=== PATIENT | male | born 1955 | race Caucasian/White ===

== ENCOUNTER 2022-11-10 11:20 | Inpatient (IN) ==
--- NOTE | 2022-11-10 12:13 | XRay Report ---
XR chest 2V PA/lateral CLINICAL HISTORY: Dyspnea, cough COMPARISON STUDY: No previous studies for comparison. FINDINGS: Lung volumes are normal. There is no pneumothorax or pleural effusion. There is no evidence for pulmonary edema. Patchy asymmetric left lung airspace opacities are present. There is mild retic ulonodular interstitial thickening within the lungs. Cardiac size is at upper limits of normal. IMPRESSION: Multifocal left lung airspace opacities suggestive of pneumonia. Post treatment radiogra phs to ensure resolution are recommended. ACT 112: Negative or not required by law. Electronically signed by: Benji Schilling M.D. 11/10/2022 12:12 PM
[2022-11-10 12:32] LABS: Base Excess VBG -0.3 mEq/L; HCO3 VBG 27 mmol/L; Oxygen Saturation VBG < 60.0 %; PCO2 VBG 55 mmHg (38-50); PO2 VBG 28 mmHg
[2022-11-10 12:43] LABS: INR 1.1 (0.9-1.1); Partial Thromboplastin Time 28.5 Seconds (21.0-31.0); Prothrombin Time 11.3 Seconds (9.0-12.0)
[2022-11-10 12:50] LABS: Albumin Globulin Ratio 1.3 (0.9-2); Albumin Level 4.9 gm/dl (3.4-5.0); BUN Creatinine Ratio 15.4 (10-20); Bilirubin,Total 1.3 mg/dl (0.2-1.0); Calcium 9.7 mg/dl (8.5-10.1); Creatinine Clr Calc Pharmacy 83.5 ml/min; Est GFR (African American) 87.5 ml/min; Est GFR (Non-African American) 75.5 ml/min; Globulin 3.8 gm/dl (2.5-4.0); Magnesium 2.2 mg/dl (1.7-2.4); Potassium 4.1 mmol/L (3.5-5.1); Total Protein 8.7 gm/dl (6.0-8.3)
[2022-11-10 12:55] LABS: Troponin I High Sensitivity 5.6 pg/ml (0-20)
[2022-11-10 13:23] LABS: Hematocrit (blood only) 53.5 % (40.1-51.0); Hemoglobin 18.6 g/dl (14.0-18.0); Mean Corpuscular Hemoglobin 30.8 pg (25.0-34.0); Mean Corpuscular Hgb Conc 34.8 g/dL (32.0-36.0); Mean Corpuscular Volume 88.6 fL (80.0-100.0); Mean Platelet Volume 9.8 fL (9.4-12.4); Platelet Count 193 K/uL (130-400); RDW Coefficient of Variation 12.5 % (11.5-14.5); RDW Standard Deviation 40.9 fL (36.4-46.3); Red Blood Count 6.04 M/uL (4.63-6.08); White Blood Count 8.84 K/ul (4.8-10.8)
[2022-11-10 13:24] LABS: Basophils # (auto) 0.04 K/uL (0-0.2); Basophils % (auto) 0.5 %; Eosinophils # (auto) 0.04 K/uL (0-0.50); Eosinophils % (auto) 0.5 %; Immature Granulocytes # (auto) 0.02 K/uL (0.00-0.02); Immature Granulocytes % (auto) 0.2 %; Lymphocytes # (auto) 0.72 K/uL (1.2-3.4); Lymphocytes % (auto) 8.1 %; Monocytes # (auto) 0.28 K/uL (0.24-0.82); Monocytes % (auto) 3.2 %; Neutrophils # (auto) 7.74 K/uL (1.4-6.5); Neutrophils % (auto) 87.5 %; Platelet Estimate Normal (Normal)
[2022-11-10 13:32] LABS: Influenza A virus by PCR Negative (Neg); Influenza B virus by PCR Negative (Neg); RSV by PCR Negative (Neg); SARS CoV2 RNA(COVID-19) Ceph NEGATIVE (Negative)
[2022-11-10] MEDS ORDERED: ALBUT/IPRATROP 3MG/0.5MG NEB 3 ML VIAL NEB STA (15:02)
[2022-11-10] MEDS ORDERED: AMPICILLIN/SULBACTAM SOD 3,000 MG in 0.9 % SODIUM CHLORIDE 100 ML IV STA (15:07)
--- NOTE | 2022-11-10 15:08 | Emergency Department Note ---
Impression & Plan Aspiration pneumonia ADMIT ED Provider Note HPI: The patient is a 66-year-old male who presents to the emergency department for evaluation for possible pneumonia. Patient had a colonoscopy done today and he tells me he began vomiting during the procedure. This was done at [facility]. Patient states that he had some issues with his breathing when he awoke, he was given a breathing treatment and advised to come to the emergency department to be assessed for possible aspiration pneumonia. On arrival here to the ED the patient had oxygen saturation at 90%, he was otherwise in no acute distress, states he has some mild shortness of breath but otherwise feels well following his procedure. ROS: - Per HPI *Outpatient medications and allergy history reviewed. *Pertinent external medical records reviewed. 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 On arrival here to the ED he has borderline oxygen saturations, on my assessment he was placed on continuous pulse ox, unfortunately he was unable to maintain oxygen saturations greater than 90% on room air and therefore was placed on supplemental oxygen with good improvement. Chest x-ray shows evidence of a multifocal pneumonia pattern, he does have some crackles at the bilateral bases, I am concerned that this may have been related to his aspiration event today given history. Blood cultures were ordered, patient was ordered a dose of IV Unasyn. EKG does not show any acute ischemic changes, troponin is negative, I have low suspicion for ACS or PE given history in addition to lack of any chest pain. His venous blood gas does initially show some evidence of acidosis with hypercarbia with a PCO2 of 55, he was given an additional DuoNeb breathing treatment, repeat venous blood gas does show improvement. Case was discussed with the [facility] hospitalist service and the patient was placed for admission in stable condition for further care Disposition discussion held by myself with: Patient and significant other Critical care time: 45-minutes -Stabilization of hypoxia with oxygen saturations less than 90% on room air requiring supplemental oxygen for correction, time spent at the bedside, discussion with other providers and arrangement of admission Diagnosis: 1. Acute hypoxic respiratory failure 2. Aspiration/multifocal pneumonia Disposition: Admission Miguel A Lee DO Emergency Medicine Past Med/Surg History Surgical History (Updated 11/10/22 @ 16:40 by Diana Greer PA-C) Hx of appendectomy S/P colonoscopy Social History Smoking Status: Never smoker Tobacco Type: Smokeless Tobacco (Dip or Chew) Hx Alcohol Use: Yes Alcohol type: beer Alcohol Intake Frequency Comment: 1-2 daily Preferred Language: Afghan Feels Safe at Home: Yes Allergies Allergies Allergy/AdvReac Type Severity Reaction Status Date / Time oxycodone [From Percocet] Allergy Severe HALLUCINATI Verified 11/10/22 15:42 ONS/CONFUSI ON Home Meds Home Medications Medication Instructions Recorded Confirmed naproxen sodium 220 mg tablet 440 mg PO DIRECTED PRN Pain 11/10/22 11/10/22 (Aleve) Results & Data (ED) Vital Signs Vital Signs - 24 hr 11/10/22 11:29 11/10/22 15:34 11/10/22 15:34 Temperature 36.8 C Temperature Source Temporal Artery Scan Pulse Rate 72 103 H Pulse Rate [Finger] 94 H Pulse Rate from SpO2 Sensor Respiratory Rate 16 22 22 Respiratory Effort / Characteristics Non-Labored Spontaneous Spontaneous Respiratory Depth Normal Normal Respiratory Pattern Regular Blood Pressure 154/92 H Blood Pressure [Right Arm] 134/74 Blood Pressure Mean 112 Blood Pressure Mean [Right Arm] 94 Blood Pressure Position Sitting Pulse Oximetry 90 93 94 Oxygen Delivery Method Room Air Nasal Cannula Nasal Cannula Oxygen Flow Rate 2 2 Sepsis Recent Fever Within 48 Hours No Sepsis New/Unexplained Change in Mental Status No Sepsis Action Taken by Nursing No Action Required 11/10/22 16:27 11/10/22 16:00 11/10/22 16:20 Temperature Temperature Source Pulse Rate 104 H 101 H Pulse Rate [Finger] 109 H Pulse Rate from SpO2 Sensor 102 H Respiratory Rate 22 26 H 28 H Respiratory Effort / Characteristics Respiratory Depth Respiratory Pattern Blood Pressure 128/84 Blood Pressure [Right Arm] 128/84 Blood Pressure Mean 98 Blood Pressure Mean [Right Arm] 98 Blood Pressure Position Pulse Oximetry 88 L 92 93 Oxygen Delivery Method Oxygen Flow Rate Sepsis Recent Fever Within 48 Hours Sepsis New/Unexplained Change in Mental Status Sepsis Action Taken by Nursing 11/10/22 16:30 11/10/22 16:40 11/10/22 16:50 Temperature Temperature Source Pulse Rate 98 H 99 H 96 H Pulse Rate [Finger] Pulse Rate from SpO2 Sensor 98 H 97 H 97 H Respiratory Rate 27 H 27 H 22 Respiratory Effort / Characteristics Respiratory Depth Respiratory Pattern Blood Pressure Blood Pressure [Right Arm] Blood Pressure Mean Blood Pressure Mean [Right Arm] Blood Pressure Position Pulse Oximetry 92 93 94 Oxygen Delivery Method Oxygen Flow Rate Sepsis Recent Fever Within 48 Hours Sepsis New/Unexplained Change in Mental Status Sepsis Action Taken by Nursing 11/10/22 17:00 11/10/22 17:00 11/10/22 17:10 Temperature Temperature Source Pulse Rate 92 H 95 H Pulse Rate [Finger] Pulse Rate from SpO2 Sensor 88 94 H Respiratory Rate 23 24 Respiratory Effort / Characteristics Respiratory Depth Respiratory Pattern Blood Pressure 128/77 Blood Pressure [Right Arm] Blood Pressure Mean 94 Blood Pressure Mean [Right Arm] Blood Pressure Position Pulse Oximetry 95 94 Oxygen Delivery Method Oxygen Flow Rate Sepsis Recent Fever Within 48 Hours Sepsis New/Unexplained Change in Mental Status Sepsis Action Taken by Nursing Laboratory Data 11/10/22 12:10 11/10/22 12:10 Lab Results 11/10/22 11/10/22 11/10/22 Range/Units 12:10 12:10 12:10 WBC 8.84 (4.8-10.8) K/ul RBC 6.04 (4.63-6.08) M/uL Hgb 18.6 H (14.0-18.0) g/dl Hct 53.5 H (40.1-51.0) % MCV 88.6 (80.0-100.0) fL MCH 30.8 (25.0-34.0) pg MCHC 34.8 (32.0-36.0) g/dL RDW Std Deviation 40.9 (36.4-46.3) fL RDW Coeff of Dionte 12.5 (11.5-14.5) % Plt Count 193 (130-400) K/uL MPV 9.8 (9.4-12.4) fL Immature Gran % (Auto) 0.2 % Neut % (Auto) 87.5 % Lymph % (Auto) 8.1 % Cherry % (Auto) 3.2 % Eos % (Auto) 0.5 % Baso % (Auto) 0.5 % Neut # (Auto) 7.74 H (1.4-6.5) K/uL Lymph # (Auto) 0.72 L (1.2-3.4) K/uL Cherry # (Auto) 0.28 (0.24-0.82) K/uL Eos # (Auto) 0.04 (0-0.50) K/uL Baso # (Auto) 0.04 (0-0.2) K/uL Immature Gran # (Auto) 0.02 (0.00-0.02) K/uL Platelet Estimate Normal (Normal) PT 11.3 (9.0-12.0) Seconds INR 1.1 (0.9-1.1) APTT 28.5 (21.0-31.0) Seconds PTT Ratio 1.0 VBG pH (7.36-7.41) VBG pCO2 (38-50) mmHg VBG pO2 mmHg VBG HCO3 mmol/L VBG O2 Saturation % VBG Base Excess mEq/L Sodium 136 (136-145) mmol/L Potassium 4.1 (3.5-5.1) mmol/L Chloride 100 (98-107) mmol/L Carbon Dioxide 28 (21-32) mmol/L Anion Gap 8 (3-11) BUN 16 (6-23) mg/dl Creatinine 1.04 (0.6-1.4) mg/dl Est Cr Clr Drug Dosing 83.5 ml/min Est GFR ( Amer) 87.5 ml/min Est GFR (Non-Af Amer) 75.5 ml/min BUN/Creatinine Ratio 15.4 (10-20) Glucose 122 H (70-99(Fasting)) mg/dl Calcium 9.7 (8.5-10.1) mg/dl Magnesium 2.2 (1.7-2.4) mg/dl Total Bilirubin 1.3 H (0.2-1.0) mg/dl AST 30 (13-39) U/L ALT 44 (7-52) U/L Alkaline Phosphatase 82 (34-104) U/L Troponin I High Sens 5.6 (0-20) pg/ml Total Protein 8.7 H (6.0-8.3) gm/dl Albumin 4.9 (3.4-5.0) gm/dl Globulin 3.8 (2.5-4.0) gm/dl Albumin/Globulin Ratio 1.3 (0.9-2) Urine Color Urine Appearance (Clear) Urine pH (4.5-7.5) Ur Specific [place] (1.000-1.030) Urine Protein (Negative) Urine Glucose (UA) (Negative) Urine Ketones (Negative) Urine Blood (Negative) Urine Nitrite (Negative) Urine Bilirubin (Negative) Urine Urobilinogen (Negative) Ur Leukocyte Esterase (Negative) Urine WBC (Auto) (0-5) /hpf Urine RBC (Auto) (0-4) /hpf U Hyaline Cast (Auto) (0-5) /lpf U Epithel Cells (Auto) (0-5) /lpf Urine Bacteria (Auto) (Negative) SARS-CoV-2 (PCR) (Negative) Influenza Type A (PCR) (Neg) Influenza Type B (PCR) (Neg) RSV (RT-PCR) (Neg) 11/10/22 11/10/22 11/10/22 Range/Units 12:10 12:10 15:19 WBC (4.8-10.8) K/ul RBC (4.63-6.08) M/uL Hgb (14.0-18.0) g/dl Hct (40.1-51.0) % MCV (80.0-100.0) fL MCH (25.0-34.0) pg MCHC (32.0-36.0) g/dL RDW Std Deviation (36.4-46.3) fL RDW Coeff of Dionte (11.5-14.5) % Plt Count (130-400) K/uL MPV (9.4-12.4) fL Immature Gran % (Auto) % Neut % (Auto) % Lymph % (Auto) % Cherry % (Auto) % Eos % (Auto) % Baso % (Auto) % Neut # (Auto) (1.4-6.5) K/uL Lymph # (Auto) (1.2-3.4) K/uL Cherry # (Auto) (0.24-0.82) K/uL Eos # (Auto) (0-0.50) K/uL Baso # (Auto) (0-0.2) K/uL Immature Gran # (Auto) (0.00-0.02) K/uL Platelet Estimate (Normal) PT (9.0-12.0) Seconds INR (0.9-1.1) APTT (21.0-31.0) Seconds PTT Ratio VBG pH 7.30 L 7.45 H (7.36-7.41) VBG pCO2 55 H 33 L (38-50) mmHg VBG pO2 28 58 mmHg VBG HCO3 27 23 mmol/L VBG O2 Saturation < 60.0 91.0 % VBG Base Excess -0.3 -0.4 mEq/L Sodium (136-145) mmol/L Potassium (3.5-5.1) mmol/L Chloride (98-107) mmol/L Carbon Dioxide (21-32) mmol/L Anion Gap (3-11) BUN (6-23) mg/dl Creatinine (0.6-1.4) mg/dl Est Cr Clr Drug Dosing ml/min Est GFR ( Amer) ml/min Est GFR (Non-Af Amer) ml/min BUN/Creatinine Ratio (10-20) Glucose (70-99(Fasting)) mg/dl Calcium (8.5-10.1) mg/dl Magnesium (1.7-2.4) mg/dl Total Bilirubin (0.2-1.0) mg/dl AST (13-39) U/L ALT (7-52) U/L Alkaline Phosphatase (34-104) U/L Troponin I High Sens (0-20) pg/ml Total Protein (6.0-8.3) gm/dl Albumin (3.4-5.0) gm/dl Globulin (2.5-4.0) gm/dl Albumin/Globulin Ratio (0.9-2) Urine Color Urine Appearance (Clear) Urine pH (4.5-7.5) Ur Specific [place] (1.000-1.030) Urine Protein (Negative) Urine Glucose (UA) (Negative) Urine Ketones (Negative) Urine Blood (Negative) Urine Nitrite (Negative) Urine Bilirubin (Negative) Urine Urobilinogen (Negative) Ur Leukocyte Esterase (Negative) Urine WBC (Auto) (0-5) /hpf Urine RBC (Auto) (0-4) /hpf U Hyaline Cast (Auto) (0-5) /lpf U Epithel Cells (Auto) (0-5) /lpf Urine Bacteria (Auto) (Negative) SARS-CoV-2 (PCR) NEGATIVE (Negative) Influenza Type A (PCR) Negative (Neg) Influenza Type B (PCR) Negative (Neg) RSV (RT-PCR) Negative (Neg) 11/10/22 Range/Units 16:14 WBC (4.8-10.8) K/ul RBC (4.63-6.08) M/uL Hgb (14.0-18.0) g/dl Hct (40.1-51.0) % MCV (80.0-100.0) fL MCH (25.0-34.0) pg MCHC (32.0-36.0) g/dL RDW Std Deviation (36.4-46.3) fL RDW Coeff of Dionte (11.5-14.5) % Plt Count (130-400) K/uL MPV (9.4-12.4) fL Immature Gran % (Auto) % Neut % (Auto) % Lymph % (Auto) % Cherry % (Auto) % Eos % (Auto) % Baso % (Auto) % Neut # (Auto) (1.4-6.5) K/uL Lymph # (Auto) (1.2-3.4) K/uL Cherry # (Auto) (0.24-0.82) K/uL Eos # (Auto) (0-0.50) K/uL Baso # (Auto) (0-0.2) K/uL Immature Gran # (Auto) (0.00-0.02) K/uL Platelet Estimate (Normal) PT (9.0-12.0) Seconds INR (0.9-1.1) APTT (21.0-31.0) Seconds PTT Ratio VBG pH (7.36-7.41) VBG pCO2 (38-50) mmHg VBG pO2 mmHg VBG HCO3 mmol/L VBG O2 Saturation % VBG Base Excess mEq/L Sodium (136-145) mmol/L Potassium (3.5-5.1) mmol/L Chloride (98-107) mmol/L Carbon Dioxide (21-32) mmol/L Anion Gap (3-11) BUN (6-23) mg/dl Creatinine (0.6-1.4) mg/dl Est Cr Clr Drug Dosing ml/min Est GFR ( Amer) ml/min Est GFR (Non-Af Amer) ml/min BUN/Creatinine Ratio (10-20) Glucose (70-99(Fasting)) mg/dl Calcium (8.5-10.1) mg/dl Magnesium (1.7-2.4) mg/dl Total Bilirubin (0.2-1.0) mg/dl AST (13-39) U/L ALT (7-52) U/L Alkaline Phosphatase (34-104) U/L Troponin I High Sens (0-20) pg/ml Total Protein (6.0-8.3) gm/dl Albumin (3.4-5.0) gm/dl Globulin (2.5-4.0) gm/dl Albumin/Globulin Ratio (0.9-2) Urine Color Dark Yellow Urine Appearance Clear (Clear) Urine pH 5.0 (4.5-7.5) Ur Specific [place] 1.023 (1.000-1.030) Urine Protein Trace H (Negative) Urine Glucose (UA) Negative (Negative) Urine Ketones Trace H (Negative) Urine Blood Trace H (Negative) Urine Nitrite Negative (Negative) Urine Bilirubin Negative (Negative) Urine Urobilinogen Negative (Negative) Ur Leukocyte Esterase Negative (Negative) Urine WBC (Auto) 1-5 (0-5) /hpf Urine RBC (Auto) 0-4 (0-4) /hpf U Hyaline Cast (Auto) 5-10 H (0-5) /lpf U Epithel Cells (Auto) 5-10 H (0-5) /lpf Urine Bacteria (Auto) Negative (Negative) SARS-CoV-2 (PCR) (Negative) Influenza Type A (PCR) (Neg) Influenza Type B (PCR) (Neg) RSV (RT-PCR) (Neg) Administered Medications Discontinued Medications Al Hydrox/Mg Hydrox/Simethicone (Gi Cocktail Ed Use) 1 dose PO ONE ONE Stop: 11/10/22 16:45 Last Admin: 11/10/22 16:50 Dose: 1 dose Documented By: RASHARD Albuterol (Albut/Ipratrop 3mg/0.5mg Neb 3 Ml Vial) 3 ml NEB NOW STA; Protocol Stop: 11/10/22 15:03 Last Admin: 11/10/22 15:11 Dose: 3 ml Documented By: UDAY Ampicillin Sodium/Sulbactam Sodium 3,000 mg/ Sodium Chloride 108 mls @ 200 mls/hr IV NOW STA; Protocol Stop: 11/10/22 15:39 Last Infusion: 11/10/22 15:57 Dose: 0 mls/hr Documented By: Admin: 11/10/22 15:22 Dose: 200 mls/hr Documented By: RASHARD Imaging Data Radiologist's Impression: Chest X-Ray 11/10/22 11:32 XR chest 2V PA/lateral CLINICAL HISTORY: Dyspnea, cough COMPARISON STUDY: No previous studies for comparison. FINDINGS: Lung volumes are normal. There is no pneumothorax or pleural effusion. There is no evidence for pulmonary edema. Patchy asymmetric left lung airspace opacities are present. There is mild reticulonodular interstitial thickening within the lungs. Cardiac size is at upper limits of normal. IMPRESSION: Multifocal left lung airspace opacities suggestive of pneumonia. Post treatment radiographs to ensure resolution are recommended. ACT 112: Negative or not required by law. Electronically signed by: Benji Schilling M.D. 11/10/2022 12:12 PM Discharge Plan Visit Data Chief Complaint: Referred by Doctor Stated Complaint: REF BY DOC ED Provider: Miguel A Lee Discharge Problem: Aspiration pneumonia Forms Stand Alone Forms: [facility] [place] Prescriptions Prescriptions: No Action naproxen sodium [Aleve] 220 mg Tablet 440 mg PO DIRECTED PRN (Reason: Pain) Referrals Referrals: PCP,NO [Physician] - : Aspiration pneumonia Qualifiers: Aspiration pneumonia type: due to vomit Laterality: unspecified laterality Lung location: unspecified part of lung Qualified Code(s): J69.0 - Pneumonitis due to inhalation of food and vomit
[2022-11-10 15:46] LABS: Base Excess VBG -0.4 mEq/L; HCO3 VBG 23 mmol/L; PCO2 VBG 33 mmHg (38-50); PO2 VBG 58 mmHg; pH VBG 7.45 (7.36-7.41)
[2022-11-10 16:41] LABS: Appearance Urine Clear (Clear); Bacteria Urine Automated Negative (Negative); Bilirubin Urine Negative (Negative); Blood Urine Trace (Negative); Color Urine Dark Yellow; Glucose Urine UA Negative (Negative); Ketones Urine Trace (Negative); Leukocyte Esterase Urine Negative (Negative); Nitrite Urine Negative (Negative); Protein Urine Trace (Negative); RBC Urine Automated 0-4 /hpf (0-4); Specific Gravity Urine 1.023 (1.000-1.030); Urobilinogen Urine Negative (Negative)
[2022-11-10] MEDS ORDERED: GI COCKTAIL ED USE PO ONE (16:44)
--- NOTE | 2022-11-10 16:55 | History & Physical Report ---
Date of Service November 10, 2022 Assessment & Plan (1) Aspiration pneumonia: (2) S/P colonoscopy: (3) Hypoxia: Plan: - Admit to med surg with tele - Episode of vomiting occurred during colonoscopy as outpatient today at [facility]. Pt developed hypoxia with sats at 88-90% on RA. Prior to the procedure he did not have any respiratory symptoms. Concerns for aspiration pneumonia and was sent to the ER, arrived by private vehicle. Here o2 sats remained lower th an 90% so was placed on 2L via NC and has sats of 94% currently. - Continue on unasyn IV , started in the ER - Continue supportive care with incentive spirometry, flutter, duoneb prn and O2 to be weaned as tolerated - Checking procalcitonin, follow blood cultures x 2 - WBC is currently 8.84, afebrile, tachycardic with pulse at 109, hypoxia as above - Hgb of 18.6 likely hemoconcentrated s/p colonoscopy and bowel prep - will give NSS x 2 L - CXR reviewed personally by myself personally by myself showing multiple opacities more so in the left lung suggesting pneumonia - EKG reviewed by myself showing NSR, normal QTC - Antiemetics on board prn, allow diet and advance as tolerated, no need for speech therapy in this instance since occurred while sedated (4) Adult BMI 30.0-30.9 kg/sq m: Plan: - Pt with muscle bulk, not obese. Diet and exercise encouraged at bedside. 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 - Admits to drinking 1-2 beers daily (5) Past history of chewing tobacco use: Plan: - Hx of chewing snuff occasionally, pt reports does not need a nicotine patch. Complete cessation was encouraged at bedside. DVT ppx: -teds, scds, ambulatory CODE: Full code Dispo: From home, likely to remain in the hospital x 1 to 2 days. History of Present Illness Chief Complaint: Aspiration during colonoscopy as outpatient, shortness of breath Primary Care Provider: Tash Lei MD This is a 66 yo M without significant past medical history who presents after having a routine colonoscopy as an outpatient at [facility] earlier today. Prior to his procedure everything was in normal state, he denies any prodrome or respiratory complaints prior to colonoscopy. During procedure patient aspirated, and afterwards felt his breathing was worsened. He was noted to be hypoxic with O2 sats in the high 80s on room air. He came with his to the hospital via private vehicle and here was found to be hypoxic with sats at 88% which improved to 90% after being placed on 2 L NC. Patient feels something rattle in his chest whenever he breathes deeply, admits to occasional cough with white sputum. Denies any fevers, sweats or chills. He has history of chewing tobacco occasionally but does not feel that he needs a nicotine patch. Patient drinks 1-2 beers daily with dinner. Pts , Nelli is present with him at bedside and supports the history. All their questions and concerns were addressed. Allergies Allergy/AdvReac Type Severity Reaction Status Date / Time oxycodone [From Percocet] Allergy Severe HALLUCINATI Verified 11/10/22 15:42 ONS/CONFUSI ON Home Medications Medication Instructions Recorded Confirmed Type naproxen sodium 220 mg tablet 440 mg PO DIRECTED PRN Pain 11/10/22 11/10/22 History (Aleve) Past Med/Surg History Medical History History of alcohol use Past history of chewing tobacco use Surgical History (Updated 11/10/22 @ 16:40 by Diana Greer PA-C) Hx of appendectomy S/P colonoscopy Family History (Updated 11/10/22 @ 17:32 by Diana Greer PA-C) Father Cancer brain Social History (Updated 11/10/22 @ 17:29 by Diana Greer PA-C) Smoking Status: Never smoker Tobacco Type: Smokeless Tobacco (Dip or Chew) Hx Alcohol Use: Yes Alcohol type: beer Alcohol Intake Frequency Comment: 1-2 daily Hx Substance Use: No Preferred Language: German Communication Ability: Effective Director Medical Economics Required: No Beliefs That Will Affect Care: None Current Living Situation: Spouse Current Living Situation Comment: and granddaughter Other Information That Helps Us Care for You: No Feels Safe at Home: Yes Safety Concerns: Feels Safe At This Time Assistive Devices: Contacts Review of Systems Review of Systems: Constitutional: No fever, sweats or chills Eyes: No diplopia, no worsening or blurred vision ENT: normal hearing, no trouble swallowing Respiratory: + As per HPI, +cough, +white sputum, no dyspnea at rest, + some dyspnea on exertion Cardiovascular: No chest pain, tightness or palpitations Abdomen: No pain, nausea, vomiting, diarrhea or constipation Musculoskeletal: No joint pain, calf pain, swelling Neurologic: No weakness, numbness/tingling, or balance problems Psychiatric: No anxiety or depression Skin: No rash or itch Physical Exam Physical Exam: General: awake, alert, no apparent distress Head: Normocephalic, atraumatic ENT: PERRL, EOMI, no pharyngeal exudate, mucous membranes moist Chest: On 2 L via NC with sats at 94% at bedside, + crackles in the left lower lobe with diminished breath sounds at the left base. Faint crackles on the right side. No wheeze or rales. Cardiac: Regular rate and rhythm, no murmur, no JVD, normal peripheral pulses, good capillary refill Abdominal: NABS x 4 quadrants, soft, nondistended, nontender to palpation, no rebound or guarding Extremities: Normal inspection, no peripheral edema or erythema, calfs nontender to palpation Psych: Normal mood and affect Neuro: AAO x 3, strength intact bilaterally and rated 5/5, no motor deficits, speech is clear, no peripheral sensory deficits Results & Data Results & Data ([facility]) Vital Signs (Past 12 Hours) Vital Signs Temp Pulse Pulse Resp BP BP Pulse Ox 11/10/22 16:27 109 H 22 128/84 88 L 11/10/22 15:34 103 H 22 94 11/10/22 15:34 94 H 22 134/74 93 11/10/22 11:29 36.8 C 72 16 154/92 H 90 O2 Del Method O2 Flow Rate 11/10/22 16:27 11/10/22 15:34 Nasal Cannula 2 11/10/22 15:34 Nasal Cannula 2 11/10/22 11:29 Room Air Laboratory Results 11/10/22 17:10 Aerobic Blood Culture - Pending Blood Anaerobic Blood Culture - Pending 11/10/22 15:19 Aerobic Blood Culture - Pending Blood Anaerobic Blood Culture - Pending 11/10/22 11/10/22 11/10/22 16:14 15:19 12:10 WBC RBC Hgb Hct MCV MCH MCHC RDW Std Deviation RDW Coeff of Dionte Plt Count MPV Immature Gran % (Auto) Neut % (Auto) Lymph % (Auto) Centre % (Auto) Eos % (Auto) Baso % (Auto) Neut # (Auto) Lymph # (Auto) Centre # (Auto) Eos # (Auto) Baso # (Auto) Immature Gran # (Auto) Platelet Estimate PT INR APTT PTT Ratio VBG pH 7.45 H VBG pCO2 33 L VBG pO2 58 VBG HCO3 23 VBG O2 Saturation 91.0 VBG Base Excess -0.4 Sodium Potassium Chloride Carbon Dioxide Anion Gap BUN Creatinine Est Cr Clr Drug Dosing Est GFR ( Amer) Est GFR (Non-Af Amer) BUN/Creatinine Ratio Glucose Calcium Magnesium Total Bilirubin AST ALT Alkaline Phosphatase Troponin I High Sens Total Protein Albumin Globulin Albumin/Globulin Ratio Urine Color Dark Yellow Urine Appearance Clear Urine pH 5.0 Ur Specific [place] 1.023 Urine Protein Trace H Urine Glucose (UA) Negative Urine Ketones Trace H Urine Blood Trace H Urine Nitrite Negative Urine Bilirubin Negative Urine Urobilinogen Negative Ur Leukocyte Esterase Negative Urine WBC (Auto) 1-5 Urine RBC (Auto) 0-4 U Hyaline Cast (Auto) 5-10 H U Epithel Cells (Auto) 5-10 H Urine Bacteria (Auto) Negative SARS-CoV-2 (PCR) NEGATIVE Influenza Type A (PCR) Negative Influenza Type B (PCR) Negative RSV (RT-PCR) Negative 11/10/22 11/10/22 11/10/22 12:10 12:10 12:10 WBC RBC Hgb Hct MCV MCH MCHC RDW Std Deviation RDW Coeff of Dionte Plt Count MPV Immature Gran % (Auto) Neut % (Auto) Lymph % (Auto) Centre % (Auto) Eos % (Auto) Baso % (Auto) Neut # (Auto) Lymph # (Auto) Centre # (Auto) Eos # (Auto) Baso # (Auto) Immature Gran # (Auto) Platelet Estimate PT 11.3 INR 1.1 APTT 28.5 PTT Ratio 1.0 VBG pH 7.30 L VBG pCO2 55 H VBG pO2 28 VBG HCO3 27 VBG O2 Saturation < 60.0 VBG Base Excess -0.3 Sodium 136 Potassium 4.1 Chloride 100 Carbon Dioxide 28 Anion Gap 8 BUN 16 Creatinine 1.04 Est Cr Clr Drug Dosing 83.5 Est GFR ( Amer) 87.5 Est GFR (Non-Af Amer) 75.5 BUN/Creatinine Ratio 15.4 Glucose 122 H Calcium 9.7 Magnesium 2.2 Total Bilirubin 1.3 H AST 30 ALT 44 Alkaline Phosphatase 82 Troponin I High Sens 5.6 Total Protein 8.7 H Albumin 4.9 Globulin 3.8 Albumin/Globulin Ratio 1.3 Urine Color Urine Appearance Urine pH Ur Specific [place] Urine Protein Urine Glucose (UA) Urine Ketones Urine Blood Urine Nitrite Urine Bilirubin Urine Urobilinogen Ur Leukocyte Esterase Urine WBC (Auto) Urine RBC (Auto) U Hyaline Cast (Auto) U Epithel Cells (Auto) Urine Bacteria (Auto) SARS-CoV-2 (PCR) Influenza Type A (PCR) Influenza Type B (PCR) RSV (RT-PCR) 11/10/22 12:10 WBC 8.84 RBC 6.04 Hgb 18.6 H Hct 53.5 H MCV 88.6 MCH 30.8 MCHC 34.8 RDW Std Deviation 40.9 RDW Coeff of Dionte 12.5 Plt Count 193 MPV 9.8 Immature Gran % (Auto) 0.2 Neut % (Auto) 87.5 Lymph % (Auto) 8.1 Centre % (Auto) 3.2 Eos % (Auto) 0.5 Baso % (Auto) 0.5 Neut # (Auto) 7.74 H Lymph # (Auto) 0.72 L Centre # (Auto) 0.28 Eos # (Auto) 0.04 Baso # (Auto) 0.04 Immature Gran # (Auto) 0.02 Platelet Estimate Normal PT INR APTT PTT Ratio VBG pH VBG pCO2 VBG pO2 VBG HCO3 VBG O2 Saturation VBG Base Excess Sodium Potassium Chloride Carbon Dioxide Anion Gap BUN Creatinine Est Cr Clr Drug Dosing Est GFR ( Amer) Est GFR (Non-Af Amer) BUN/Creatinine Ratio Glucose Calcium Magnesium Total Bilirubin AST ALT Alkaline Phosphatase Troponin I High Sens Total Protein Albumin Globulin Albumin/Globulin Ratio Urine Color Urine Appearance Urine pH Ur Specific [place] Urine Protein Urine Glucose (UA) Urine Ketones Urine Blood Urine Nitrite Urine Bilirubin Urine Urobilinogen Ur Leukocyte Esterase Urine WBC (Auto) Urine RBC (Auto) U Hyaline Cast (Auto) U Epithel Cells (Auto) Urine Bacteria (Auto) SARS-CoV-2 (PCR) Influenza Type A (PCR) Influenza Type B (PCR) RSV (RT-PCR) Diagnostic Findings Chest X-Ray 11/10/22 11:32 XR chest 2V PA/lateral CLINICAL HISTORY: Dyspnea, cough COMPARISON STUDY: No previous studies for comparison. FINDINGS: Lung volumes are normal. There is no pneumothorax or pleural effusion. There is no evidence for pulmonary edema. Patchy asymmetric left lung airspace opacities are present. There is mild reticulonodular interstitial thickening within the lungs. Cardiac size is at upper limits of normal. IMPRESSION: Multifocal left lung airspace opacities suggestive of pneumonia. Post treatment radiographs to ensure resolution are recommended. ACT 112: Negative or not required by law. Electronically signed by: Benji Schilling M.D. 11/10/2022 12:12 PM ECG Additional Comments: NSR - reviewed Code Status & VTE Plan Code Status Full code Supervising Physician Co-Signing Physician Notes Patient is a 66-year-old male with no significant past medical history who underwent screening colonoscopy at outpatient [facility] earlier today presents with shortness of breath and hypoxia secondary to aspiration during the procedure. Currently patient states having known expectorant cough but otherwise denies any shortness of breath. He is saturating well on 2 L supplemental oxygen. Please review HPI for complete details of presentation. B lood work showed hemoglobin 18.6, hematocrit 53.5, glucose 102, total bili 1.3 but otherwise within normal limits. Normal procalcitonin level. Negative COVID, influenza, RSV screen. Chest x-ray suggestive of multifocal pneumonia on the left lung. Blood cultures pending. EKG showed normal sinus rhythm, QTC 433. On exam patient is well-built and nourished, no apparent distress, normocephalic atraumatic, EOMI, decreased breath sounds at the bases, scattered wheezing, S1-S2, no murmur, no pedal edema, abdomen soft, nontender, normal bowel sounds, alert, awake, oriented, grossly no focal deficits. Patient is admitted for management of aspiration pneumonia, hypoxia after having colonoscopy. Empirically started on Unasyn. Supplemental oxygen, nebs as needed. Will give IV fluids. Monitor for any alcohol withdrawal issues. I personally reviewed the record. Patient is interviewed and examined at bedside. Patient's care is coordinated with Diana Greer PA-C. Please refer to the documentation above for details of patient's presentation and for discussion of other issues.
[2022-11-10] MEDS ORDERED: ONDANSETRON INJ 2 MG/ML 2 ML VIAL IV PRN (17:51)
[2022-11-10] MEDS ORDERED: ALBUT/IPRATROP 3MG/0.5MG NEB 3 ML VIAL NEB PRN (17:51)
[2022-11-10] MEDS ORDERED: ACETAMINOPHEN 325 MG TAB PO PRN (17:51)
[2022-11-10] MEDS: SODIUM CHLORIDE 0.9% 1000ML 1,000 ML IV SCH (18:45)
[2022-11-10] MEDS ORDERED: LEVALBUTEROL HCL 0.63 MG/3 ML NEB NEB PRN (20:41)
[2022-11-10] MEDS ORDERED: guaiFENesin 600 MG TABCR PO SCH (21:00)
[2022-11-10] MEDS: AMPICILLIN/SULBACTAM SOD 1,500 MG in 0.9 % SODIUM CHLORIDE 100 ML IV SCH (21:50)
[2022-11-11] MEDS: SODIUM CHLORIDE 0.9% 1000ML 1,000 ML IV SCH (02:50)
[2022-11-11] MEDS: AMPICILLIN/SULBACTAM SOD 1,500 MG in 0.9 % SODIUM CHLORIDE 100 ML IV SCH ×4 (02:50→20:59)
--- NOTE | 2022-11-11 05:35 | Electrocardiogram Report ---
Test Reason : Blood Pressure : / mmHG Vent. Rate : 078 BPM Atrial Rate : 078 BPM P-R Int : 176 ms QRS Dur : 088 ms QT Int : 380 ms P-R-T Axes : 022 -17 027 degrees QTc Int : 433 ms Poor data quality, interpretation may be adversely affected Normal sinus rhythm Normal ECG No previous ECGs available Confirmed by Shakir Beltrán ([id number]) on 11/11/2022 5:35:30 AM Referred By: Confirmed By:Shakir Beltrán
[2022-11-11 07:25] LABS: Hematocrit (blood only) 44.1 % (40.1-51.0); Hemoglobin 15.5 g/dl (14.0-18.0); Mean Corpuscular Hemoglobin 30.9 pg (25.0-34.0); Mean Corpuscular Hgb Conc 35.1 g/dL (32.0-36.0); Mean Platelet Volume 9.3 fL (9.4-12.4); Platelet Count 181 K/uL (130-400); RDW Coefficient of Variation 12.7 % (11.5-14.5); RDW Standard Deviation 40.9 fL (36.4-46.3); Red Blood Count 5.01 M/uL (4.63-6.08); White Blood Count 18.26 K/ul (4.8-10.8)
[2022-11-11 07:42] LABS: Anion Gap 5 (3-11); BUN Creatinine Ratio 20.5 (10-20); Blood Urea Nitrogen 17 mg/dl (6-23); Calcium 8.2 mg/dl (8.5-10.1); Carbon Dioxide 26 mmol/L (21-32); Chloride 102 mmol/L (98-107); Creatinine Clr Calc Pharmacy 104.9 ml/min; Est GFR (African American) 107.8 ml/min; Glucose 107 mg/dl (70-99(Fasting)); Sodium 133 mmol/L (136-145)
[2022-11-11] MEDS: SODIUM CHLOR 7% 4 ML NEB NEB SCH ×2 (08:37→20:08)
[2022-11-11] MEDS: ALBUT/IPRATROP 3MG/0.5MG NEB 3 ML VIAL NEB SCH ×2 (08:48→20:08)
[2022-11-11] MEDS: FOLIC ACID 1 MG TAB PO SCH (09:20)
[2022-11-11] MEDS: THIAMINE HCL 100 MG TAB PO SCH (09:20)
--- NOTE | 2022-11-11 13:07 | Hospitalist Progress Note ---
Date of Service November 11, 2022 Assessment & Plan (1) Acute respiratory failure with hypoxia: (2) Aspiration pneumonia: Plan This is a 66 yo M without significant past medical history who presents with aspiration after routine colonoscopy. He was noted to be hypoxic with oxygen saturation in 80s and was sent to the ED. Aspiration pneumonia Acute respiratory failure with hypoxia -Presented with aspiration event during routine colonoscopy -Hypoxic prior to arrival to ED. -Chest x-ray shows infiltrates in left midlung and lower base. -WBC elevated -Pro-Allan negative Plan; Continue pulmonary toileting with hypertonic saline nebs and DuoNeb. Flutter valve and incentive spirometry. Continue on Unasyn; will provide 5 to 7-day course. -Continue to monitor oxygen saturation; goal O2 greater than 92% Adult BMI 30.0-30.9 kg/sq m: Plan: - Pt with muscle bulk, not obese. Diet and exercise encouraged at bedside. 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 - Admits to drinking 1-2 beers daily Past history of chewing tobacco use: Plan: - Hx of chewing snuff occasionally, pt reports does not need a nicotine patch. Complete cessation was encouraged at bedside. DVT ppx: -teds, scds, ambulatory CODE: Full code DispositionHome; likely tomorrow a.m. based on clinical course. Admission and Anticipated Discharge Date Admission Date: November 10, 2022 Subjective Patient seen and examined at bedside. He reports coughing episode with occasional phlegm. He was on 2 L of oxygen which was weaned off to room air. Review of Systems Review of Systems: All systems reviewed & are unremarkable except as noted in Subjective Physical Exam Physical Exam: Constitutional: WD/WN, vitals as above, NAD, sitting up in bed, pleasant, conversing easily Respiratory: Crackles heard on left mid lung and lower base. Cardiovascular: RRR, no murmur, no edema Vessels: no JVD or carotid bruit Chest: normal inspection of chest Abdomen: normal bowel sounds, soft, nontender, no hepatosplenomegaly Musculoskeletal: no cyanosis or clubbing, extremities motor strength 5/5 Skin: no rashes, warm and dry normal turgor Neurologic: PERRL, EOMI, accommodation nl, no face palsy, no dysarthria CN's II- XI intact bilaterally and moves all extremities Psychiatric: A+Ox3, euthymic affect Lymphatic: no cervical or axillary lymphadenopathy : deferred Results & Data Results & Data ([facility]) Vital Signs (Past 12 Hours) Vital Signs Temp Pulse Pulse Resp BP BP Pulse Ox 11/11/22 11:30 36.5 C 60 18 143/72 H 95 11/11/22 07:18 62 11/11/22 08:40 68 18 98 11/11/22 07:25 36.8 C 61 18 126/75 95 11/11/22 02:53 36.4 C L 62 18 124/75 94 O2 Del Method O2 Flow Rate 11/11/22 11:30 Room Air 11/11/22 07:18 11/11/22 08:40 Nasal Cannula 2 11/11/22 07:25 Nasal Cannula 2 11/11/22 02:53 Nasal Cannula 2 Laboratory Results Laboratory Results WBC 18.26 K/ul (4.8-10.8) H 11/11/22 06:47 RBC 5.01 M/uL (4.63-6.08) 11/11/22 06:47 Hgb 15.5 g/dl (14.0-18.0) D 11/11/22 06:47 Hct 44.1 % (40.1-51.0) 11/11/22 06:47 MCV 88.0 fL (80.0-100.0) 11/11/22 06:47 MCH 30.9 pg (25.0-34.0) 11/11/22 06:47 MCHC 35.1 g/dL (32.0-36.0) 11/11/22 06:47 RDW Std Deviation 40.9 fL (36.4-46.3) 11/11/22 06:47 RDW Coeff of Dionte 12.7 % (11.5-14.5) 11/11/22 06:47 Plt Count 181 K/uL (130-400) 11/11/22 06:47 MPV 9.3 fL (9.4-12.4) L 11/11/22 06:47 Immature Gran % (Auto) 0.2 % 11/10/22 12:10 Neut % (Auto) 87.5 % 11/10/22 12:10 Lymph % (Auto) 8.1 % 11/10/22 12:10 Mcdonald % (Auto) 3.2 % 11/10/22 12:10 Eos % (Auto) 0.5 % 11/10/22 12:10 Baso % (Auto) 0.5 % 11/10/22 12:10 Neut # (Auto) 7.74 K/uL (1.4-6.5) H 11/10/22 12:10 Lymph # (Auto) 0.72 K/uL (1.2-3.4) L 11/10/22 12:10 Mcdonald # (Auto) 0.28 K/uL (0.24-0.82) 11/10/22 12:10 Eos # (Auto) 0.04 K/uL (0-0.50) 11/10/22 12:10 Baso # (Auto) 0.04 K/uL (0-0.2) 11/10/22 12:10 Immature Gran # (Auto) 0.02 K/uL (0.00-0.02) 11/10/22 12:10 Platelet Estimate Normal (Normal) 11/10/22 12:10 PT 11.3 Seconds (9.0-12.0) 11/10/22 12:10 INR 1.1 (0.9-1.1) 11/10/22 12:10 APTT 28.5 Seconds (21.0-31.0) 11/10/22 12:10 PTT Ratio 1.0 11/10/22 12:10 VBG pH 7.45 (7.36-7.41) H 11/10/22 15:19 VBG pCO2 33 mmHg (38-50) L 11/10/22 15:19 VBG pO2 58 mmHg 11/10/22 15:19 VBG HCO3 23 mmol/L 11/10/22 15:19 VBG O2 Saturation 91.0 % 11/10/22 15:19 VBG Base Excess -0.4 mEq/L 11/10/22 15:19 Sodium 133 mmol/L (136-145) L 11/11/22 06:47 Potassium 4.2 mmol/L (3.5-5.1) 11/11/22 08:09 Chloride 102 mmol/L (98-107) 11/11/22 06:47 Carbon Dioxide 26 mmol/L (21-32) 11/11/22 06:47 Anion Gap 5 (3-11) 11/11/22 06:47 BUN 17 mg/dl (6-23) 11/11/22 06:47 Creatinine 0.83 mg/dl (0.6-1.4) 11/11/22 06:47 Est Cr Clr Drug Dosing 104.9 ml/min 11/11/22 06:47 Est GFR ( Amer) 107.8 ml/min 11/11/22 06:47 Est GFR (Non-Af Amer) 93.0 ml/min 11/11/22 06:47 BUN/Creatinine Ratio 20.5 (10-20) H 11/11/22 06:47 Glucose 107 mg/dl (70-99(Fasting)) H 11/11/22 06:47 Calcium 8.2 mg/dl (8.5-10.1) L 11/11/22 06:47 Magnesium 2.2 mg/dl (1.7-2.4) 11/10/22 12:10 Total Bilirubin 1.3 mg/dl (0.2-1.0) H 11/10/22 12:10 AST 30 U/L (13-39) 11/10/22 12:10 ALT 44 U/L (7-52) 11/10/22 12:10 Alkaline Phosphatase 82 U/L (34-104) 11/10/22 12:10 Troponin I High Sens 5.6 pg/ml (0-20) 11/10/22 12:10 Total Protein 8.7 gm/dl (6.0-8.3) H 11/10/22 12:10 Albumin 4.9 gm/dl (3.4-5.0) 11/10/22 12:10 Globulin 3.8 gm/dl (2.5-4.0) 11/10/22 12:10 Albumin/Globulin Ratio 1.3 (0.9-2) 11/10/22 12:10 Procalcitonin < 0.05 ng/ml (0-0.5) 11/10/22 12:10 Urine Color Dark Yellow 11/10/22 16:14 Urine Appearance Clear (Clear) 11/10/22 16:14 Urine pH 5.0 (4.5-7.5) 11/10/22 16:14 Ur Specific [place] 1.023 (1.000-1.030) 11/10/22 16:14 Urine Protein Trace (Negative) H 11/10/22 16:14 Urine Glucose (UA) Negative (Negative) 11/10/22 16:14 Urine Ketones Trace (Negative) H 11/10/22 16:14 Urine Blood Trace (Negative) H 11/10/22 16:14 Urine Nitrite Negative (Negative) 11/10/22 16:14 Urine Bilirubin Negative (Negative) 11/10/22 16:14 Urine Urobilinogen Negative (Negative) 11/10/22 16:14 Ur Leukocyte Esterase Negative (Negative) 11/10/22 16:14 Urine WBC (Auto) 1-5 /hpf (0-5) 11/10/22 16:14 Urine RBC (Auto) 0-4 /hpf (0-4) 11/10/22 16:14 U Hyaline Cast (Auto) 5-10 /lpf (0-5) H 11/10/22 16:14 U Epithel Cells (Auto) 5-10 /lpf (0-5) H 11/10/22 16:14 Urine Bacteria (Auto) Negative (Negative) 11/10/22 16:14 SARS-CoV-2 (PCR) NEGATIVE (Negative) 11/10/22 12:10 Influenza Type A (PCR) Negative (Neg) 11/10/22 12:10 Influenza Type B (PCR) Negative (Neg) 11/10/22 12:10 RSV (RT-PCR) Negative (Neg) 11/10/22 12:10 (1) Aspiration pneumonia Aspiration pneumonia type: due to vomit Laterality: unspecified laterality Lung location: unspecified part of lung Qualified Code(s): J69.0 - Pneumonitis due to inhalation of food and vomit
--- NOTE | 2022-11-11 15:46 | XRay Report ---
XR chest 1V portable HISTORY: Cough. Follow up on left side infiltrates COMPARISON: Chest 11/10/2022. FINDINGS: No pneumothorax. No pleural effusions. The heart remains top normal in size. Hazy left lung airspace opacities persist. No new focal lung consolidations identified. No evidence for pulmonary edema. IMPRESSION: No change in the left lung airspace opacities consistent with a pneumonia. ACT 112: Negative or not required by law. Electronically signed by: Ashkan Black M.D. 11/11/2022 3:45 PM
[2022-11-12] MEDS: AMPICILLIN/SULBACTAM SOD 1,500 MG in 0.9 % SODIUM CHLORIDE 100 ML IV SCH ×2 (02:44→08:09)
[2022-11-12] MEDS: ALBUT/IPRATROP 3MG/0.5MG NEB 3 ML VIAL NEB SCH (07:24)
[2022-11-12] MEDS: SODIUM CHLOR 7% 4 ML NEB NEB SCH (07:24)
[2022-11-12] MEDS: FOLIC ACID 1 MG TAB PO SCH (08:07)
[2022-11-12] MEDS: THIAMINE HCL 100 MG TAB PO SCH (08:07)
[2022-11-12 08:56] LABS: Basophils # (auto) 0.05 K/uL (0-0.2); Basophils % (auto) 0.5 %; Eosinophils # (auto) 0.34 K/uL (0-0.50); Eosinophils % (auto) 3.3 %; Hematocrit (blood only) 41.8 % (40.1-51.0); Hemoglobin 14.8 g/dl (14.0-18.0); Immature Granulocytes # (auto) 0.03 K/uL (0.00-0.02); Immature Granulocytes % (auto) 0.3 %; Lymphocytes # (auto) 1.99 K/uL (1.2-3.4); Lymphocytes % (auto) 19.1 %; Mean Corpuscular Hemoglobin 31.2 pg (25.0-34.0); Mean Corpuscular Hgb Conc 35.4 g/dL (32.0-36.0); Mean Platelet Volume 9.3 fL (9.4-12.4); Monocytes # (auto) 0.49 K/uL (0.24-0.82); Monocytes % (auto) 4.7 %; Neutrophils # (auto) 7.53 K/uL (1.4-6.5); Neutrophils % (auto) 72.1 %; Platelet Count 159 K/uL (130-400); RDW Coefficient of Variation 12.7 % (11.5-14.5); Red Blood Count 4.75 M/uL (4.63-6.08); White Blood Count 10.43 K/ul (4.8-10.8)
[2022-11-12 09:16] LABS: BUN Creatinine Ratio 16.1 (10-20); Creatinine Clr Calc Pharmacy 93.6 ml/min; Est GFR (African American) 100.2 ml/min; Est GFR (Non-African American) 86.5 ml/min; Potassium 3.8 mmol/L (3.5-5.1)
--- NOTE | 2022-11-12 10:34 | Discharge Summary ---
Date of Service November 12, 2022 Admission HPI Per Admitting Provider This is a 66 yo M without significant past medical history who presents after having a routine colonoscopy as an outpatient at [facility] earlier today. Prior to his procedure everything was in normal state, he denies any prodrome or respiratory complaints prior to colonoscopy. During procedure patient aspirated, and afterwards felt his breathing was worsened. He was noted to be hypoxic with O2 sats in the high 80s on room air. He came with his to the hospital via private vehicle and here was found to be hypoxic with sats at 88% which improved to 90% after being placed on 2 L NC. Patient feels something rattle in his chest whenever he breathes deeply, admits to occasional cough with white sputum. Denies any fevers, sweats or chills. He has history of chewing tobacco occasionally but does not feel that he needs a nicotine patch. Patient drinks 1-2 beers daily with dinner. Pts , Nelli is present with him at bedside and supports the history. All their questions and concerns were addres sed. Admission Exam Per Admitting Provider General: awake, alert, no apparent distress Head: Normocephalic, atraumatic ENT: PERRL, EOMI, no pharyngeal exudate, mucous membranes moist Chest: On 2 L via NC with sats at 94% at bedside, + crackles in the left lower lobe with diminished breath sounds at the left base. Faint crackles on the right side. No wheeze or rales. Cardiac: Regular rate and rhythm, no murmur, no JVD, normal peripheral pulses, good capillary refill Abdominal: NABS x 4 quadrants, soft, nondistended, nontender to palpation, no rebound or guarding Extremities: Normal inspection, no peripheral edema or erythema, calfs nontender to palpation Psych: Normal mood and affect Neuro: AAO x 3, strength intact bilaterally and rated 5/5, no motor deficits, speech is clear, no peripheral sensory deficits Principal Diagnosis Aspiration pneumonia Acute respiratory failure with hypoxia Discharge Exam Constitutional: WD/WN, vitals as above, NAD, sitting up in bed, pleasant, conversing easily Respiratory: Crackles heard in left side mid lung and lower lung field. Cardiovascular: RRR, no murmur, no edema Vessels: no JVD or carotid bruit Chest: normal inspection of chest Abdomen: normal bowel sounds, soft, nontender, no hepatosplenomegaly Musculoskeletal: no cyanosis or clubbing, extremities motor strength 5/5 Skin: no rashes, warm and dry normal turgor Neurologic: PERRL, EOMI, accommodation nl, no face palsy, no dysarthria CN's II- XI intact bilaterally and moves all extremities Psychiatric: A+Ox3, euthymic affect Lymphatic: no cervical or axillary lymphadenopathy : deferred Discharge Data Allergies Allergy/AdvReac Type Severity Reaction Status Date / Time oxycodone [From Percocet] Allergy Severe HALLUCINATI Verified 11/10/22 15:42 ONS/CONFUSI ON Consultations 11/10/22 16:32 ED Decision to Admit Stat Hospital Course (1) Acute respiratory failure with hypoxia: (2) Aspiration pneumonia: Plan This is a 66 yo M without significant past medical history who presents with aspiration after routine colonoscopy. He was noted to be hypoxic with oxygen saturation in 80s and was sent to the ED. on presentation to the ED, patient was afebrile; required 2 L of oxygen by nasal cannula. Chest x-ray was done which showed infiltrates in left midlung and lower base. His Pro-Allan was negative. Patient was admitted to telemetry floor; started on duo nebs/hypertonic saline/ Incentive spirometry/flutter valve for pulmonary toileting. He was also started on Unasyn. Through the hospitalization, patient showed signs of improvement; oxygenation was weaned off to room air. Patient was discharged home with instruction to follow-up with his primary care doctor; was recommended to obtain repeat chest x-ray in 2 weeks. He was given 5-day course of Augmentin to complete the course of antibiotic. Total Time Total Time Spent Total Time Spent (In Minutes): 34 Total Time Includes: Examination of the Patient, Discharge Planning, Medication Reconciliation, Communication With Other Providers and Other Discharge Plan Discharge Items Patient Disposition: Home - Self-Care Reason For Visit: ASPIRATION PNEUMONIA Discharge Diagnosis: Aspiration pneumonia Acute respiratory failure with hypoxia Activity: Resume your previous activity Non-emergency contact: Primary Care Provider Call non-emergency contact if: you have any medication questions and your symptoms worsen Follow-up/Referrals: Tash Lei MD [Primary Care Provider] - (Date & Time 11/17/2022 3:00 PM Provider Toby River MD Department Family [facility] ) Diet: Regular Addtl Attending Provider Instructions: You were admitted to the hospital with aspiration pneumonia. You were treated with breathing treatment and antibiotics. You are prescribed Augmentin to be taken twice daily for 5 more days. Please follow-up with your primary care doctor on November 17 at 3 PM. You will need to repeat chest x-ray within next 2 weeks to ensure improvement in the pneumonia. Pending Studies at Discharge: No Stand-Alone Forms: My [facility], Smoking Cessation Medications and DC Order Prescriptions: New amoxicillin 875 mg tablet 875 mg PO BID 5 Days Qty: 10 0RF Continued naproxen sodium [Aleve] 220 mg Tablet 440 mg PO DIRECTED PRN (Reason: Pain) Discharge Orders: Discharge Order (Routine); Ordered 11/12/22 Ordered By: Ernesto Maldonado Admission Data Admit Date/Time: 11/10/22 16:55 Attending Provider: Ernesto Maldonado Admit Provider: Alejandro Farfan Primary Care Provider: Tash Lei Other Providers: Alejandro Farfan Other Interventions: Discharge Summary Assessment (RN) Last Done: 11/12/22 10:07
== END 2022-11-12 10:35 | disposition home or self-care (01) | DRG 205 ==
LOC: ED 11:20 → SUATTDRO 16:55 → EDINP 16:55 → 2N 19:57